=== PATIENT | male | born 1940 | race Caucasian/White ===

== ENCOUNTER → 2019-01-15 | Outpatient (CLI) | payer OTHER ==
[~2019-01-15] MED LIST: OMEP-272 PO; PRAM1.5T25 PO; TERA1CAP4 PO
== END | disposition home or self-care (01) ==
LOC: RAH 11:15
PROVIDERS: ATTEND Internal Medicine
DX: M17.11 Unilateral primary osteoarthritis, right knee (principal); M17.12 Unilateral primary osteoarthritis, left knee; M47.817 Spondylosis without myelopathy or radiculopathy, lumbosacral region; M41.87 Other forms of scoliosis, lumbosacral region; M25.78 Osteophyte, vertebrae; M48.07 Spinal stenosis, lumbosacral region
CPT/HCPCS: 72100; 73562

== ENCOUNTER → 2019-08-26 | Outpatient (CLI) | payer OTHER | END | disposition home or self-care (01) | LOC: RAH 13:20 | PROVIDERS: ATTEND Physical Medicine & Rehabilitation | DX: M47.816 Spondylosis without myelopathy or radiculopathy, lumbar region (principal); M46.96 Unspecified inflammatory spondylopathy, lumbar region | CPT/HCPCS: 72131 ==